=== PATIENT | male | born 1945 | race Caucasian/White ===

== ENCOUNTER → 2016-12-18 | Day surgery (SDC) | payer MEDICARE ==
[~2016-12-18] MED LIST: BUPIVACAINE HCL PF 0.25% 30 ML VIAL ONE; ENAL20TA PO; LACTATED RINGER'S 1000 ML INJ 1,000 ML ONE; MIDAZOLAM HCL 2 MG/2 ML VIAL ONE; OXYC-360 PO; PROPOFOL 200 MG/20 ML AMP IV ONE; ceFAZolin INJ 1,000 MG VIAL ONE
--- NOTE | 2016-12-18 11:41 | PD.OP ---
cc: Harmeet Ledezma Jr., MD Operative Report Date of Surgery: Dec 18, 2016 Preoperative Diagnosis: 1- right thumb trigger finger 2- right dequervains synovitis Postoperative Diagnosis: same Procedure: 1- right thumb trigger finger release 2- right 1st dorsal compartment release Anesthesia: choice Surgeon: Harmeet Ledezma Business Team Leader(s): staff Resident Surgeon: none Operation and Findings: Patient was seen and evaluated preoperatively. Patient was found to have a right thumb trigger finger and ipsilateral dequervains tenosynovitis both of which have failed conservative treatment, as noted in the outpatient office notes. The patient now presents for open surgical release. Informed consent was obtained after detailed discussion of risk and benefits of surgery. Operative site was marked. A timeout was performed and agreed upon all members of the surgical team to identify the patient's name, age, operative site, operating surgeon, medical record number and planned procedure. IV sedation and anesthsia were administered by anesthesiologist. Operative arm was prepped with alcohol followed by Hibiclens and draped in usual sterile fashion. Procedure began with a small longitudinal incision at the distal palmar crease overlying the MP joint and the A1 helen of the thumb. Dissection taken down through the subcutaneous tissue wall taking care not to injure the palmar neurovascular bundle. The A1 helen was identified. There was significant cystic changes and hypertrophy of the flexor tendon causing triggering on exam. A1 helen was carefully released to its proximal and distal extent. Examination after the release revealed no triggering and smooth tracking and excursion of the flexor tendon. Hemostasis was obtained. The wound was then Thoroughly irrigated and closed with 3-0 vicryl. Sterile dressing applied. The radial styloid was palpated and marked. A small incision was made overlying the 1st DC. Dissection was taken down the level of the retinaculum and the 1st DC, containing APL/EPB was opened and released. There was significant synovitis of the tendons. The tendons were elevated and freed from the floor the compartment to ensure there were no further adhesions, subsheaths, additional compartment, septum or osteophytes present. The wound was irrigated, closed with 3-0 Vicryl and 2-0 nylon at the skin. Sterile dressing was applied and the patient was placed in a well-padded radial gutter splint. There were no complications. Patient extubated and transferred to PACU in stable condition. The patient was awakened and then taken to recovery in good condition. Harmeet Ledezma Jr., MD Dec 18, 2016 11:41
== END | disposition home or self-care (01) ==
LOC: ESDC 08:53
PROVIDERS: ATTEND Orthopaedic Surgery
DX: M65.311 Trigger thumb, right thumb (principal); M65.4 Radial styloid tenosynovitis [de Quervain]
CPT/HCPCS: 01810; 25000; 26055; J0690; J2250; J3010; J7120

== ENCOUNTER → 2017-02-19 | Outpatient (CLI) | payer MEDICARE ==
[~2017-02-19] MED LIST changes: -BUPIVACAINE HCL PF 0.25% 30 ML VIAL ONE; -LACTATED RINGER'S 1000 ML INJ 1,000 ML ONE; -MIDAZOLAM HCL 2 MG/2 ML VIAL ONE; -PROPOFOL 200 MG/20 ML AMP IV ONE; -ceFAZolin INJ 1,000 MG VIAL ONE
[2017-02-19 13:45] LABS: AUTOMATED NEUTROPHIL # 3.5 TH/MM3 (1.8-7.7); BASOPHIL # 0.1 TH/MM3 (0-0.2); BASOPHIL % 0.7 % (0.0-2.0); EOSINOPHIL # 0.3 TH/MM3 (0-0.4); EOSINOPHIL % 2.8 % (0.0-4.0); LYMPH % 56.7 % (9.0-44.0); LYMPHOCYTE # 5.7 TH/MM3 (1.0-4.8); MEAN CELL VOLUME 93.7 FL (80.0-100.0); MEAN CORPUSCULAR HEMOGLOBIN 31.9 PG (27.0-34.0); NEUT % 34.8 % (16.0-70.0); PLATELET COUNT 226 TH/MM3 (150-450); RED CELL DISTRIBUTION WIDTH 13.1 % (11.6-17.2)
[2017-02-19 13:47] LABS: BLOOD, URINE NEG (NEG); GLUCOSE,URINE NEG (NEG); HEMO FLAGS AUTO DIFF; KETONE, URINE NEG (NEG); NITRITE,URINE NEG (NEG); PH, URINE 5.5 (5.0-8.5); URINE COLOR LIGHT-YELLOW (YELLW/STRAW)
[2017-02-19 13:48] LABS: COMMENT (UR) CULT NOT INDICATED; CULTURE IF INDICATED CULT NOT INDICATED
[2017-02-19 14:18] LABS: ANION GAP 8 MEQ/L (5-15); AST (GOT) 14 U/L (15-37); BICARBONATE 24.4 MEQ/L (21.0-32.0); BLOOD UREA NITROGEN 17 MG/DL (7-18); CHLORIDE 106 MEQ/L (98-107); GLOMERULAR FILTRATION RATE 73 ML/MIN (>89); GLUCOSE,FASTING 121 MG/DL (74-99); POTASSIUM 4.5 MEQ/L (3.5-5.1); SODIUM (NA) 138 MEQ/L (136-145)
[2017-02-19 14:24] LABS: BASOPHILS 2 % (0-2); EOSINOPHILS 1 % (0-4); POLYS (SEG NEUTROPHILS) 30 % (16-70); WBC DIFF SAMPLE 100
[2017-02-19 14:26] LABS: PLATELET ESTIMATE SMEAR NORMAL (NORMAL); PLATELET MORPHOLOGY NORMAL (NORMAL); SCAN/DIFF FINAL DIFF MANUAL
[2017-02-19 14:31] LABS: ALKALINE PHOSPHATASE 73 U/L (45-117); ALT (GPT) 21 U/L (12-78); HDL CHOLESTEROL 47.3 MG/DL (40.0-60.0); LDL CHOLESTEROL 72 MG/DL (0-99); TOTAL BILIRUBIN ADULT 0.7 MG/DL (0.2-1.0)
== END ==
LOC: PLAB 08:27
PROVIDERS: ATTEND Internal Medicine
DX: I10 Essential (primary) hypertension (principal); E78.00 Pure hypercholesterolemia, unspecified; Z12.5 Encounter for screening for malignant neoplasm of prostate
CPT/HCPCS: 36415; 80053; 80061; 81001; 84443; 85007; 85027